=== PATIENT | female | born 1970 | race Caucasian/White ===

== ENCOUNTER 2020-07-05 15:05 | Outpatient (CLI) | payer OTHER, SELFPAY ==
--- NOTE | ~2020-07-05 | MM_ITS ---
EXAMINATION: MM screening [facility] BI w purvi HISTORY: Screening mammogram TECHNIQUE: Craniocaudal and mediolateral oblique 3-D tomosynthesis images were obtained and synthetic 2-D images were generated. CAD analysis was submitted and interpreted. COMPARISON: 05/09/2018 BREAST PARENCHYMAL COMPOSITION: The breasts are heterogeneously dense, which may obscure small masses . FINDINGS: There is no evidence of suspicious mass, calcification, or architectural distortion to sugg est malignancy in either breast. There has been no suspicious interval change. IMPRESSION: 1. No mammographic evidence of malignancy. 2. Recommend routine screening mammography in one year. BI-RADS Category 1: Negative Reviewed, dictated and finalized at location A. UCT SAFETY COMPLIANCE LEADER
== END 2020-07-05 15:06 | disposition home or self-care (01) ==
PROVIDERS: PCP Physician Assistant; Visit Provider Physician Assistant
DX: Z12.31 Encounter for screening mammogram for malignant neoplasm of breast (principal)
CPT/HCPCS: 77063; 77067

== ENCOUNTER 2022-07-16 08:47 | Outpatient (CLI) | payer OTHER, SELFPAY ==
--- NOTE | ~2022-07-16 | MM_ITS ---
EXAMINATION: MM screening [facility] BI w purvi HISTORY: Screening mammogram TECHNIQUE: Craniocaudal and mediolateral oblique 3-D tomosynthesis images were obtained and synthetic 2-D images were generated. CAD analysis was submitted and interpreted. COMPARISON: 07/05/2020, 05/09/2018 BREAST PARENCHYMAL COMPOSITION: There are scattered areas of fibroglandular density. FINDINGS: No suspicious mass, calcification, or architectural distortion are identified in either olman ast to suggest malignancy. There has been no suspicious interval change. IMPRESSION: 1. No mammographic evidence of malignancy. 2. Recommend routine screening mammography in one year. BI-RADS Category 1: Negative Reviewed, dictated and finalized at location A. HEALTH ATTENDANT
== END 2022-07-16 08:48 | disposition home or self-care (01) ==
LOC: ANHIMG 08:51
PROVIDERS: PCP Physician Assistant; Visit Provider Physician Assistant
DX: Z12.31 Encounter for screening mammogram for malignant neoplasm of breast (principal)
CPT/HCPCS: 77063; 77067

== ENCOUNTER 2023-11-21 14:20 | Outpatient (CLI) | payer BC, OTHER, SELFPAY ==
--- NOTE | ~2023-11-21 | MM_ITS ---
EXAMINATION: MM screening [facility] BI w purvi HISTORY: Screening TECHNIQUE: Craniocaudal and mediolateral oblique 3-D tomosynthesis images were obtained and synthetic 2-D images were generated. CAD analysis was submitted and interpreted. COMPARISON: Comparison to multiple prior studies sequentially, with oldest reviewed study dated 04/13. BREAST PARENCHYMAL COMPOSITION: Not dense: There are scattered areas of fibroglandular density. FINDINGS: There is no evidence of suspicious mass, calcification, or architectural distortion to sugg est malignancy in either breast. There has been no suspicious interval change. IMPRESSION: 1. No mammographic evidence of malignancy. 2. Recommend routine screening mammography in one year. BI-RADS Category 1: Negative Reviewed, dictated and finalized at location B.
== END 2023-11-21 14:21 | disposition home or self-care (01) ==
PROVIDERS: PCP Physician Assistant; Visit Provider Physician Assistant
DX: Z12.31 Encounter for screening mammogram for malignant neoplasm of breast (principal)
CPT/HCPCS: 77063; 77067

== ENCOUNTER 2025-02-08 15:34 | Outpatient (CLI) | payer BC, OTHER, SELFPAY ==
--- NOTE | ~2025-02-08 | MM_ITS ---
EXAMINATION: MM screening [facility] BI w purvi HISTORY: Screening TECHNIQUE: Craniocaudal and mediolateral oblique 3-D tomosynthesis images were obtained and synthetic 2-D images were generated. CAD analysis was submitted and interpreted. COMPARISON: Comparison to multiple prior studies sequentially, with oldest reviewed study dated 05/09/2018. BREAST PARENCHYMAL COMPOSITION: Not dense: There are scattered areas of fibroglandular density. FINDINGS: There is no evidence of suspicious mass, calcification, or architectural distortion to suggest malignancy in either breast. There has been no suspicious interval change. IMPRESSION: 1. No mammographic evidence of malignancy. 2. Recommend routine screening mammography in one year. BI-RADS Category 1: Negative Reviewed, dictated and finalized at location B.
--- OUTSIDE RECORDS SUMMARY | 2025-02-08 16:25 | XMS_ITS | Encounter Summary ---
Author Organization [facility] Address [address] [place] [address] Phone Care Team Providers Care Vice President Financial Name Role Phone Meryl Viera Primary Care Provider [phone] Alexys Cerna MD Unavailable [phone] Encounter Details Date Type Department Care Team (Latest Contact Info) Description 12/07/2024 Results Follow-Up [facility] Medicine Orthopaedic Surgery [address] [facility] Medical Office Building [address] [place] [address] Keenan Pepe MD [address] [place] [address] MRI Knee Right WO Contrast Social History Tobacco Use Types Packs/Day Years Used Date Smoking Tobacco: Never Smokeless Tobacco: Never Alcohol Use Standard Drinks/Week Comments Yes 3 (1 standard drink = 0.6 oz pur e alcohol) Socially AUDIT-C Answer Date Recorded Q1: How often do you have a drink containing alc ohol? 2-4 times a month 12/14/2024 Q2: How many drinks containi ng alcohol do you have on a typical day when you are drinking? 3 or 4 12/14/2024 Q3: How often do you have si x or more drinks on one occasion? Never 12/14/2024 PHQ-2 Answer Date Recorded PHQ-2 Total Score (If total score is 3 or more points, staff should administer the PHQ-9) 0 12/14/2024 PHQ-9 Answer Date Recorded PHQ-9 Total Score 0 11/04/2023 Personal Safety Answer Date Recorded Have you ever been in or are you currently in a harmful physical or emotional relationship or is someone making you feel afraid or unsafe? Denies 10/16/2024 Comments No Sex and Gender Information Value Date Recorded Sex Assigned at Not on file Legal Sex Female 7:43 AM SOLUTIONS ARCHITECT Gender Identity Female 07/02/2020 9:51 AM SOLUTIONS ARCHITECT Sexual Orientation Straight 07/02/2020 9: 51 AM SOLUTIONS ARCHITECT documented as of this encounter Functional Status * AUDIT-C Score Answer Date of Assessment Author 3 12/14/2024 2:26 PM CDT Vince Ypi LPN * Question Answer Date of Assessment Author Q1: How often do you have a drink containing alcohol? 2-4 times a month 12/14/2024 2:26 PM Eri Owens L PN Q2: How many drinks containing alcohol do you have on a typical day when you are drinking? 3 or 4 12/14/2024 2:26 PM CDT Eri Yip L PN Q3: How often do you have six or more drinks on one occasion? Never 12/14/2024 2:26 PM CDEri Lopez L PN documented as of this encounter Plan of Treatment Not on file documented as of this encounter Visit Diagnoses Not on filedocumented in this encounter Care Teams Vice President Financial Relationship Specialty Start Date End Date Meryl Viera PA [address] [place] [address] PCP - General 04/26/17 Alexys Cerna MD [address] [place] [address] Consulting Physician Family Medicine 02/25/19 documented as of this encounter
--- OUTSIDE RECORDS SUMMARY | 2025-02-08 16:25 | XMS_ITS | Clinical Summary ---
Author Organization [facility] Address [facility] [place] [address] Care Team Providers Care Hunter Trapper Name Role Phone Unavailable Primary Care Provider Unavailabl e Immunizations Immunization Administration Dates Next Due MODERNA COVID-19 (12+) MRNA, LNP-S, PF, 100 MCG/ 0.5 ML DOSE 06/28/2020 PFIZER COVID-19 (ORIGINAL FO RMULATION, PURPLE CAP) mRNA, LNP-S, PF, 30 MCG/0.3 ML DOSE 07/25/2020 Social History Tobacco Use Types Packs/Day Years Used Date Smoking Tobacco: Never Assessed Comments Unknown Sex and Gender Information Value Date Recorded Sex Assigned at Not on file Legal Sex Female 7:37 PM CDT Gender Identity Not on file Sexual Orientation Not on file Plan of Treatment Health Maintenance Due Date Last Done Comments Cervical Cancer Screening Pa p Smear (Age 30 to 64) Every 3 Years 1970 Colorectal Cancer Screening Colonoscopy (10 Years) 1970 Annual Physical 1973 Hepatitis C 02/03/1988 DTaP, Tdap and Td Vaccines ( 1 - Tdap) 1989 Hepatitis B Vaccines (1 of 3 - 19+ 3-dose series) 1989 Cervical Cancer Screening Pa p with HPV Testing (Age 30 to 64) Every 5 Years 02/03/2000 Cervical Cancer Screening wi th HPV 02/03/2000 Mammogram Screening 2010 Pneumococcal Vaccine: 50+ Years (1 of 1 - PCV) 02/03/2020 Zoster Vaccines (1 of 2) 02/03/2020 COVID-19 Vaccine (3 - 2024-2 6 season) 2025 07/25/2020, 06/28/2020 Meningococcal B Vaccine Aged Out No l onger eligible based on patient's age to complete this topic Meningococcal Vaccine Aged Out No lisa junior eligible based on patient's age to complete this topic RSV Immunizations Under 20 Months Aged Out No longer eligible b ased on patient's age to complete this topic
--- OUTSIDE RECORDS SUMMARY | 2025-02-08 16:25 | XMS_ITS | Encounter Summary ---
Author Organization [facility] Address [address] [place] [address] Care Team Providers Care Mail Processing Equipment Mechanic Name Role Phone Meryl Viera Primary Care Provider [phone] Alexys Cerna MD Unavailable + [phone] Encounter Details Date Type Department Care Team (Late st Contact Info) Description 12/09/2024 Results Follow-Up [facility] Family Medicine [address] [address] Meryl Viera PA [address] [address] Vitamin D 25 hydroxy, Thyroid Function [place], Lipid panel Social History Tobacco Use Types Packs/Day Years Used Date Smoking Tobacco: Never Smokeless Tobacco: Never Alcohol Use Standard Drinks/Week Comments Yes 3 (1 standard drink = 0.6 oz pur e alcohol) Socially AUDIT-C Answer Date Recorded Q1: How often do you have a drink containing alc ohol? 2-4 times a month 10/19/2024 Q2: How many drinks containi ng alcohol do you have on a typical day when you are drinking? 3 or 4 10/19/2024 Q3: How often do you have si x or more drinks on one occasion? Never 10/19/2024 PHQ-2 Answer Date Recorded PHQ-2 Total Score (If total score is 3 or more points, staff should administer the PHQ-9) 0 10/19/2024 PHQ-9 Answer Date Recorded PHQ-9 Total Score 0 11/04/2023 Personal Safety Answer Date Recorded Have you ever been in or are you currently in a harmful physical or emotional relationship or is someone making you feel afraid or unsafe? Denies 10/16/2024 Comments No Sex and Gender Information Value Date Recorded Sex Assigned at Not on file Legal Sex Female 7:43 AM APPLICATION SYSTEMS ENGINEER Gender Identity Female 07/02/2020 9:51 AM APPLICATION SYSTEMS ENGINEER Sexual Orientation Straight 07/02/2020 9: 51 AM APPLICATION SYSTEMS ENGINEER documented as of this encounter Plan of Treatment Not on file documented as of this encounter Visit Diagnoses Not on filedocumented in this encounter Care Teams Mail Processing Equipment Mechanic Relationship Specialty Start Date End Date Meryl Viera PA [address] [place], [place] [id number] PCP - General 04/26/17 Alexys Cerna MD [address] [place] [address] Consulting Physician Family Medicine 02/25/19 documented as of this encounter
--- OUTSIDE RECORDS SUMMARY | 2025-02-08 16:25 | XMS_ITS | Patient Health Record ---
Author Organization [facility] ([address]) Address [address] [place] [address] Care Team Providers Care Community Health Navigator Name Role Phone Meryl Viera Primary Care Provider Ewa Stallings Unavailable [phone] Allergies Allergen (clinical drug ingredient) Drug/Non Drug Allergy documented on EMR Reaction Allergy Type Onset Date Status fluconazole Fluconazole rash Drug Allergy Act olga lisinopril Lisinopril cough Drug Allergy Activ e Macrolides and Ketolides hives over 10 years ago and thinks taking for strep or bronchitis Drug Allergy Active Substance with sulfonamide structure and antibacterial mechanism of action (substance) Sulfa Antibiotics hives and does not remember the reaction Drug Allergy Active Reason For Referral No Information Medications Medication SIG (Take, Route, Frequency, Duration) Notes Start Date End Date Status Losartan Potassium-HCTZ 50-12.5 MG Oral; Duration: 30 Days Acti ve Levothyroxine Sodium 50 MCG Oral; Duration: 30 Days Active Social History Tobacco Use: Social History Observation Description Date Details (start date - stop date) Never Smoker NA - NA Sex Assigned At : Social History Observation Description Sex Assigned At Female Tobacco Control (Standard) Question Answer Notes Tobacco use: Nonsmoker AUDIT-C (Standard) Question Answer Notes Did you have a drink contain ing alcohol in the past year? Yes How often did you have a dri nk containing alcohol in the past year? 2 to 4 times a month (2 points) How many drinks did you have on a typical day when you were drinking in the past year? 1 or 2 drinks (0 point) How often did you have six o r more drinks on one occasion in the past year? Less than monthly (1 point) Points 3 Interpretation Positive Problems Problem Type SNOMED Code ICD Code Onset Dates Problem Status W/U Status Risk Notes Problem Chronic allergic conjunctivitis (93075079) Other chronic allergic conjunctivitis (H10.45) Active confirmed Problem Allergic rhinitis caused by pollen (disorder) (68272257) Allergic rhinitis due to pollen (J30.1) Active confirmed Problem Allergic rhinitis (03980845) Other allergic rhinitis (J30.89) Active confirmed Problem Chronic rhinitis (84457423) Chronic rhinitis (J31.0) Active confirmed Problem Uncomplicated mild persistent asthma (282565538) Mild persistent asthma, uncomplicated (J45.30) Active confirmed Problem Uncomplicated moderate persistent asthma (867945042) Moderate persistent asthma, uncomplicated (J45.40) Active confirmed Problem Uncomplicated severe persistent asthma (479307607) Severe persistent asthma, uncomplicated (J45.50) Active confirmed Problem Allergic rhinitis caused by animal hair and dander (151522551841393) Allergic rhinitis due to animal (cat) (dog) hair and dander (J30.81) Active confirmed Problem Allergy status t o other antibiotic agents (Z88.1) Active confirmed Problem Allergy status t o other drugs, medicaments and biological substances (Z88.8) Active confirmed Vital Signs Blood pressure diastolic 87 mm Hg 11/23/2024 Oximetry 97 % 11/23/2024 Height 68 in 11/23/2024 Blood pressure systolic 133 mm Hg 11/23/2024 Weight 234.6 lbs 11/23/2024 BMI 35.67 kg/m2 11/23/2024 Encounters Encounter Location Date Provider [facility] [address] 11/23/2024 Ewa Klein Generalized skin eruption due to drugs and medicaments taken internally L27.0 ; Allergy status to other antibiotic agents Z88.1 and Allergy status to other drugs, medicaments and biological substances Z88.8 Assessments Encounter Date Diagnosis (ICD Code) Assessment Notes Treatment Notes Treatment Clinical Notes Section Notes 11/23/2024 Generalized skin eruption due to drugs and medicaments taken internally (ICD-10 - L27.0) Unclear cause for rash. Skin now is clear. Most likely related to the existing rash which started before taking fluconazole. We discussed that skin testing is not available to diagnose a fluconazole allergy. If fluconazole is needed in the future consider a drug challenge. Instructed to call the office if rash recurs. 11/23/2024 Allergy status to other antibiotic agents (ICD-10 - Z88.1) Recommend continued avoidance of macrolides and sulfa drugs. We discussed that skin testing possibly could be performed to macrolide. Need to check records to see which antibiotic was taken. Skin testing is not available for Bactrim and drug challenge would need to be performed for further evaluation. 11/23/2024 Allergy status to other drugs, medicaments and biological substances (ICD-10 - Z88.8) cough with lisinopril is a side effect and need to continue avoidance. 11/23/2024 Other Plan Of Treatment No Information Insurance Providers Payer Name Payer Address Payer Phone Subscriber Number Group Number Insured Name Patient Relationship to Insured Coverage Start Date Coverage End Date [facility] [address] [place] [address] [phone] [id number] Princess Blake Self - patient is the insured 3 [employer] [address] [place] [address] [phone] [id number] Reggie Blake Spouse - patient is the spouse of the insured Medical (General) History Medical History History ICD Code Hypertension Surgical History Surgery Date(Month/Year) hysterectomy cholecystectomy
--- OUTSIDE RECORDS SUMMARY | 2025-02-08 16:25 | XMS_ITS | Clinical Summary ---
Author Organization [address] Address [address] [place] [phone] Care Team Providers Care Radiology Orderly Name Role Phone Meryl Viera Primary Care Provider Alexys Cerna MD Unavailable +- [phone] Allergies Active Allergy Reactions Criticality Noted Date Comments Fluconazole Rash Medium 10/19/2024 Lisinopril Cough Low 08/11/2021 Macrolide Antibiotics Hives Medium 08/29/2018 Sulfa (Sulfonamide Antibiotics) Hives Medium 1209/2016 Medications multivitamin tabletIndications:V itamin Deficiency Prevention Take 1 tablet by mouth Active cholecalciferol (VITAMIN D-3) 2000 unit tablet Active meloxicam (MOBIC) 15 mg tablet Take 1 tablet (15 mg total) by mouth daily Take 1 daily with food 30 tablet 5 Active losartan-hydroCHLOR Othiazide (HYZAAR) 50-12.5 mg per tabletIndications:B enign essential hypertension Take 1 tablet by mouth daily 90 tablet 3 5 Active levothyroxine (SYNTHROID) 50 mcg tabletIndications:A cquired hypothyroidism TAKE 1 TABLET(50 MCG) BY MOUTH DAILY 90 tablet 3 5 Active Active Problems Problem Noted Date Diagnosed Date Humerus head fracture, left, with routine healing, subsequent encounter 10/15/2024 Assessment & Plan (10/15/2024 9:45 AM CDT): Other specified hypothyroidism 08/11/2021 Assessment & Plan (12/14/2024 3:23 PM CDT): Chronic, well controlled Hypothyroidism well-controlled with levothyroxine. Recent labs show normal thyroid levels. She is adherent to medication regimen. - Continue levothyroxine as prescribed. Assessment & Plan (11/04/2023 9:56 AM CDT): Uncontrolled. Synthroid was recently increased to 50 mcg. Repeat labs in 6 weeks Assessment & Plan (08/11/2021 2:19 PM CDT): Repeat labs in 3 months. Hypertriglyceridemia 07/14/2021 Assessment & Plan (12/14/2024 3:23 PM CDT): Chronic, sub-optimal Goal less than 150 Limit red meats, fried and processed foods, and maintain regular exercise Assessment & Plan (11/04/2023 9:56 AM CDT): Improving. Patient will hold Tricor and repeat labs in 3 months Assessment & Plan (08/11/2021 2:25 PM CDT): Uncontrolled. Pt will increase fish oil to 1000 mg. Repeat labs in 3 months Assessment & Plan (07/14/2021 1:05 PM [employer]): Stable, continue current meds, check labs Class 2 severe obesity due t o excess calories with serious comorbidity and body mass index (BMI) of 36.0 to 36.9 in adult 02/27/2019 Assessment & Plan (12/14/2024 3:23 PM CDT): Chronic, exacerbated Weight gain associated with recent knee injury Plans to pick exercise back up following physical therapy Exercise encouraged 30 minutes 5 times a week or 150 minutes a week with no more than 2 days in between Healthy diet recommended 2 lb per week healthy weight loss goal Assessment & Plan (11/04/2023 9:56 AM CDT): Educated patient on healthy diet/exercise plan. Exercise 150min-300min per week of moderate intensity. Diet: good, healthy protein (eggs, nuts, peanut butter, chicken, fish, turkey, less pork/beef), lots of vegetables, less carbohydrates and less sugar. Assessment & Plan (07/14/2021 1:04 PM [employer]EM[employer]): Uncontrolled. Goal of BMI is less than 30 Educated patient on healthy diet/exercise plan. Exercise 150min-300min per week of moderate intensity. Diet: good, healthy protein (eggs, nuts, peanut butter, chicken, fish, turkey, less pork/beef), lots of vegetables, less carbohydrates and less sugar. Assessment & Plan (03/01/2021 7:55 AM CDT): Uncontrolled. Goal of BMI is less than 30 Educated patient on healthy diet/exercise plan. Exercise 150min-300min per week of moderate intensity. Diet: good, healthy protein (eggs, nuts, peanut butter, chicken, fish, turkey, less pork/beef), lots of vegetables, less carbohydrates and less sugar. Patient reports she has started to ride her bike more often. Assessment & Plan (07/04/2020 2:38 PM [employer] CHE[employer]EM[employer]): Educated patient on healthy diet/exercise plan. Exercise 150min-300min per week of moderate intensity. Diet: good, healthy protein (eggs, nuts, peanut butter, chicken, fish, turkey, less pork/beef), lots of vegetables, less carbohydrates and less sugar. Assessment & Plan (02/27/2019 9:24 AM CDT): Educated patient on healthy diet/exercise plan. Exercise 150min-300min per week of moderate intensity. Diet: good, healthy protein (eggs, nuts, peanut butter, chicken, fish, turkey, less pork/beef), lots of vegetables, less carbohydrates and less sugar. Annual physical exam 02/26/2019 Overview (04/02/2024): PMH: 11/04/23 Last pap: hyst Last mammogram:11/21/23 Last dexa: Last colonoscopy/cologuard: Colonoscopy 03/2024. Repeat in 5 years Last tdap:05/26/21 Last Prevnar/pneumovax: Last Shingrix: completed Last eye exam: 2023 Assessment & Plan (12/14/2024 3:23 PM CDT): Routine wellness visit with no acute concerns. Discussed general health maintenance and lifestyle modifications. - Ensure mammogram is scheduled for February 08. - Provide order for mammogram reminder. Assessment & Plan (11/04/2023 9:19 AM CDT): PMH: 11/04/23 Last pap: hyst Last mammogram:08/02 Last dexa: Last colonoscopy/cologuard: cologuard + ( has appt for colonoscopy) Last tdap:05/26/21 Last Prevnar/pneumovax: Last Shingrix: completed Last eye exam: 2023 Assessment & Plan (10/10/2022 9:40 AM CDT): PMH: 07/14/2021 Last pap: hyst Last mammogram:04/2018, 07/05/20, 08/02 Last dexa: Last colonoscopy/cologuard: cologuard 07/11/2020 Last tdap:10/20/2009, 05/26/21 Last Prevnar/pneumovax: Last Shingrix: due. Last eye exam: 02/27/2019, 06/2020 Exercise 5 days a week, 30 mins per day recommended. Eat a heart healthy diet consisting of good, healthy protein (eggs, nuts, peanut butter, chicken, fish, turkey, less pork/beef), lots of vegetables, less carbohydrates and less sugar. Annual physical recommended. Assessment & Plan (07/14/2021 1:04 PM [employer]): PMH: 07/14/2021 Last pap: hyst Last mammogram:04/2018, 07/05/20 Last dexa: Last colonoscopy/cologuard: cologuard 07/11/2020 Last tdap:10/20/2009, 05/26/21 Last Prevnar/pneumovax: Last Shingrix: due. Last eye exam: 02/27/2019, 06/2020 Assessment & Plan (07/04/2020 2:29 PM [employer] CHEESEM[employer]): PMH: 07/04/2020 Last pap: hyst Last mammogram:04/2018 (scheduled for tomorrow) Last dexa: Last colonoscopy/cologuard: ordered cologuard Last tdap:10/20/2009 (due) Last Prevnar/pneumovax: Last Shingrix: due. Last eye exam: 02/27/2019, 06/2020 Assessment & Plan (02/27/2019 8:23 AM CDT): PMH: 02/27/2019 Last pap: hyst Last mammogram:04/2018 Last dexa: Last colonoscopy/cologuard: Last tdap:10/20/2009 Last Prevnar/pneumovax: Last Shingrix: Last eye exam: 02/27/2019 Menopausal and female climacteric states 019 Assessment & Plan (07/14/2021 1:05 PM [employer]): Stable, continue current meds, due for mammogram Assessment & Plan (03/01/2021 7:55 AM CDT): Uncontrolled. Will increase estradiol to 1.5 mg daily. Follow-up in June Assessment & Plan (07/04/2020 2:39 PM [employer]): Stable, continue meds. Patient has mammogram scheduled tomorrow Assessment & Plan (06/24/2019 2:46 PM [employer]): Patient/parent was counseled on medication risk, side effects, and possible complications. Patient/parent was counseled on how to properly take the medication and to call with any adverse reactions. Patient/parent stated understanding. Pt will get her mammogram done. F/u 3 months Assessment & Plan (02/27/2019 8:19 AM CDT): On hormone creams Mixed hyperlipidemia 06/19/2017 Assessment & Plan (12/14/2024 3:23 PM CDT): Chronic, sub-optimal Goal less than 100 Limit red meats, fried and processed foods, and maintain regular exercise Repeat lab next follow up Assessment & Plan (11/04/2023 9:56 AM CDT): Improving. Patient will hold Tricor and repeat labs in 3 months. Assessment & Plan (07/14/2021 1:05 PM [employer] CHE[employer]): Stable, check labs Assessment & Plan (03/01/2021 7:55 AM CDT): Uncontrolled. Increase Tricor to 145 mg. Follow-up in June. Repeat labs in May Assessment & Plan (07/04/2020 2:39 PM [employer]): Diet controlled. Due for labs Assessment & Plan (02/27/2019 9:23 AM CDT): Diet controlled check labs in May Elevated rheumatoid factor 04/16/2017 Assessment & Plan (11/04/2023 9:56 AM CDT): Monitoring Assessment & Plan (07/14/2021 1:04 PM [employer]): Asymptomatic at this time Assessment & Plan (02/27/2019 8:18 AM CDT): See rheumatology and concern for possible lupus. Need to return when she has another episode. Benign essential hypertension 11/23/2015 Assessment & Plan (12/14/2024 3:23 PM CDT): Chronic, stable Hypertension well-managed with losartan and hydrochlorothiazide. Reviewed heart healthy diet Exercise recommended at least 5 times per week for a 1/2 hour Low-sodium diet recommended-2000 mg or less per day Monitor blood pressure regularly notify if less than 100/60 or greater than 130s over 80s Notify if pulse is less than 60 or greater than 100 Orders: losartan-hydroCHLOROthiazide (HYZAAR) 50-12.5 mg per tablet; Take 1 tablet by mouth daily Assessment & Plan (11/04/2023 9:56 AM CDT): Stable, continue Hyzaar Assessment & Plan (08/11/2021 2:24 PM CDT): Stable, doing well with current blood pressure medication. Dry cough has resolved. Follow-up in 6 months Assessment & Plan (07/14/2021 1:22 PM [employer]): Stable, patient is having side effect of cough. Stop lisinopril hydrochlorothiazide and start Hyzaar. Follow-up in 2 weeks for blood pressure check in 4 weeks for an appointment. Order labs Assessment & Plan (03/01/2021 7:55 AM CDT): Controlled, patient will continue with prescription medication. Follow-up in June Assessment & Plan (07/04/2020 2:38 PM [employer]EM[employer]): Images from the original note were not included. Stable, continue meds, ordered labs. Follow-up in 6 months. Patient informed the lab/xray results will be sent to the [facility]. They are to log in and view the results and any notes/messages/plans/orders. They should call the office with any questions. Assessment & Plan (02/27/2019 9:23 AM CDT): Stable continue meds labs due in May Vitamin D deficiency 11/23/2015 Assessment & Plan (12/14/2024 3:23 PM CDT): Chronic, stable Vitamin D deficiency managed with daily supplementation. She is compliant with supplements. - Continue daily vitamin D supplementation. Assessment & Plan (11/04/2023 9:56 AM CDT): Recommend continuing multivitamin Assessment & Plan (07/14/2021 1:05 PM [employer]): Stable, check vitamin-D Assessment & Plan (03/01/2021 7:55 AM CDT): Stable, continue vitamin-D Assessment & Plan (07/04/2020 2:39 PM [employer]OR[employer] CHEESEM[employer]): Not taking vitamins. Check labs Assessment & Plan (02/27/2019 9:23 AM CDT): Stable continue vitamin-D Resolved Problems Problem Noted Date Diagnosed Date Resolved Date MARIA DEL ROSARIO on CPAP 02/14/2023 12/14/2024 Assessment & Plan (11/04/2023 9:57 AM CDT): Continue CPAP Assessment & Plan (02/14/2023 3:54 PM CDT): Due to continued symptoms, the patient will continue with auto titrating CPAP set at 5-20 cm water pressure. Denied need for supplies. 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 She has [employer] insurance and I will order a home sleep test and she will follow-up here in 3 months. Encounters Date Type Department Care Team Description 01/19/2025 2:30 PM CDT Office Visit [facility] Medicine Orthopaedic Surgery [address] [address] 1st [address] [place] [address] Olvin Pavon MD Other closed nondisplaced fracture of proximal end of left humerus with routine healing, subsequent encounter (Primary Dx); Left shoulder pain, unspecified chronicity 12/22/2024 7:38 AM CDT - 12/22/2024 11:59 PM CDT Hospital Encounter [facility] Radiology at [facility] [address] [place] [phone] Left shoulder pain, unspecified chronicity Discharge Disposition: Discharge to home or self care 12/22/2024 7:30 AM CDT Office Visit [facility] Medicine Orthopaedic Surgery [address] [facility] 1[address] [place] [address] Olvin Pavon MD Left shoulder pain, unspecified chronicity (Primary Dx); Other closed nondisplaced fracture of proximal end of left humerus, initial encounter 12/14/2024 2:30 PM CDT Office Visit [facility] [address] [phone] Mercy Weber NP Annual physical exam (Primary Dx); Acute pain of right knee; Benign essential hypertension; Mixed hyperlipidemia; Hypertriglyceridemia ; Class 2 severe obesity due to excess calories with serious comorbidity and body mass index (BMI) of 36.0 to 36.9 in adult (HCC); Vitamin D deficiency; Other specified hypothyroidism; Encounter for screening mammogram for malignant neoplasm of breast 12/09/2024 Results Follow-Up [facility] [address] [phone] Meryl Viera PA Vitamin D 25 hydroxy, Thyroid Function [place], Lipid panel 12/08/2024 9:05 AM CDT Lab [facility] [address] [place] [phone] Annual physical exam; Vitamin D deficiency; Acquired hypothyroidism; Mixed hyperlipidemia; Hypertriglyceridemia 12/07/2024 Orders Only [facility] ([facility] - [facility] [address] [facility] [address] [address] [place] [address] Keenan Pepe MD Acute pain of right knee (Primary Dx) 12/07/2024 Telephone [facility] [address] [phone] Meryl Viera PA Additional Services Or Orders 12/07/2024 Results Follow-Up [facility] [address] [facility] [address] [place] [phone] Keenan Pepe MD MRI Knee Right WO Contrast 12/05/2024 8:32 AM CDT - 12/05/2024 11:59 PM CDT Hospital Encounter [facility] Radiology at [address] [address] Acute pain of right knee Discharge Disposition: Discharge to home or self care 12/04/2024 Orders Only [facility] Radiology at [facility] [address] [place] [phone] Rose Maza RN 12/01/2024 12:06 PM CDT - 12/01/2024 11:59 PM CDT Hospital Encounter [facility] Radiology at [facility] [address] [place] [phone] Discharge Disposition: Discharge to home or self care 12/01/2024 12:00 PM CDT Office Visit [facility] - [facility] [address] [place] [address] [address] [place] [address] Keenan Pepe MD Acute pain of right knee (Primary Dx) 11/24/2024 10:02 AM CDT - 11/24/2024 11:59 PM CDT Hospital Encounter [facility] Radiology at [facility] [address] [place] [phone] Left shoulder pain, unspecified chronicity Discharge Disposition: Discharge to home or self care 11/24/2024 10:00 AM CDT Office Visit [facility] [address] [place] [address] 1[address] [place] [phone] Olvin Pavon MD Other closed nondisplaced fracture of proximal end of left humerus, initial encounter (Primary Dx); Left shoulder pain, unspecified chronicity from Last 3 Months Immunizations Immunization Administration Dates Next Due Influenza, Quadrivalent, Spl it, Preservative Free, Intramuscular 02/23/2022,02/27/2019 Influenza, Trivalent, IM (MDV) 01/25/2021 Influenza, Unspecified 02/11/2024(Deferr ed: Patient decision),02/10/2023(Deferred: Patient Refused),02/10/2021,02/11/2020 Moderna SARS-CoV-2 Monovalen t Vaccination (12+ YRS) 06/28/2020 Tdap 05/26/2021,10/20/2009 ZOSTER Recombinant 04/04/2022,08/11/2021 Surgical History Surgery Date Site/Laterality Comments OVARIAN CYST REMOVAL VAGINAL HYSTERECTOMY One ovary remain, left CHOLECYSTECTOMY Medical History Medical History Date Comments Benign essential hypertension 11/23/2015 Elevated rheumatoid factor 04/16/2017 Health maintenance examination 02/26/2019 P MH: Last pap: hyst Last mammogram:04/2018 Last dexa: Last colonoscopy/cologuard: Last tdap:10/20/2009 Last Prevnar/pneumovax: Last Shingrix: Last eye exam: Menopausal and female climacteric states 019 Mixed hyperlipidemia 06/19/2017 Vitamin D deficiency 11/23/2015 Hypothyroidism MARIA DEL ROSARIO on CPAP 02/14/2023 Family History Medical History Relation Name Comments Heart attack Father Melchor Patten Stroke Father Melchor Patten Family history of cerebrovascular accident (CVA) - (Added by TW Conv) Depression Mother Julisa Patten Hyperlipidemia Mother Julisa Patten Hypertension Mother Julisa Patten Hypothyroidism Mother Julisa Patten Memory loss Mother Julisa Patten Relation Name Status Comments Father Melchor Patten (Age 49) Mother Julisa Patten Alive Sister Alive Social History Tobacco Use Types Packs/Day Years Used Date Smoking Tobacco: Never Smokeless Tobacco: Never Tobacco Cessation:Counseling Given: Not Answered Alcohol Use Standard Drinks/Week Comments Yes 3 [...] on file Legal Sex Female 7:43 AM [employer] Gender Identity Female 07/02/2020 9:51 AM [employer] CHEES[employer] Sexual Orientation Straight 07/02/2020 9: 51 AM [employer] Obstetrics History Para Term AB IAB SAB Ectopic Multiple Livin g Live Births 2 2 Date Outcome GA Total Labor Labor/2nd/3rd Weight Sex Type Anes PTL Terri A1 A5 Name Clin Para Para Last Filed Vital Signs Vital Sign Reading Time Taken Comments Blood Pressure 126/70 12/14/2024 2:29 PM CDT Pulse 77 12/14/2024 2:29 PM CDT Temperature 36.6 C (97.9 F) 12/14/2024 2:29 PM CDT Respiratory Rate 16 12/14/2024 2:29 PM CDT Oxygen Saturation 97% 12/14/2024 2:29 PM CDT Inhaled Oxygen Concentration - - Weight 109.5 kg (241 lb 6.4 oz) 12/14/2024 2:29 PM CDT Height 172.7 cm (5' 8) 12/14/2024 2:29 PM CDT Body Mass Index 36.7 12/14/2024 2:29 PM CDT Plan of Treatment Health Maintenance Due Date Last Done Comments Hepatitis C Screening 1970 Hepatitis B Screening 02/03/1988 Breast Cancer Screening-Mammogram 11/20/2024 11/21/2023, 07/16/2022, 07/05/2020, Additional history exists Covid-19 Vaccine ( season) 2025 04/28/2021, 07/25/2020, 06/28/2020 Influenza Vaccine (#1) 2025 , 02/10/2021, 01/25/2021, Additional history exists Depression Screening 12/14/2025 12/14/2024, 10/19/2024, 10/15/2024, Additional history exists Regular Well Visit/Exam 18-64 12/14/2025 12/14/2024, 12/14/2024, 11/04/2023, Additional history exists Colon Cancer Screening-DNA Stool 03/26/2027 03/26/2024, 03/13/2024, 09/18/2023, Additional history exists Colon Cancer Screening-Colonoscopy 03/26/2029 03/26/2024, 03/13/2024 DTaP/Tdap/Td Vaccine (3 - Td or Tdap) 05/26/2031 05/26/2021, 10/20/2009 Zoster Vaccine Completed 04/04/2022, 08/11/2021 Pneumococcal vaccine <65 Aged Out No longer eligible based on patient's age to complete this topic Procedures Procedure Name Priority Date/Time Associated Diagnosis Comments XR SHOULDER LEFT 2 OR MORE VIEWS Schedule Routine, Read Routine (OP Routine) 12/22/2024 7:42 AM CDT Left shoulder pain, unspecified chronicity LIPID PANEL Routine 12/08/2024 9:19 AM CDT Annual physical exam Mixed hyperlipidemia Hypertriglyceridem ia THYROID FUNCTION CASCADE Routine 12/08/2024 9:19 AM CDT Acquired hypothyroidism Annual physical exam VITAMIN D 25 HYDROXY Routine 12/08/2024 9:19 AM CDT Annual physical exam Vitamin D deficiency MRI KNEE RIGHT WO CONTRAST Schedule Routine, Read Routine (OP Routine) 12/05/2024 9:19 AM CDT Acute pain of right knee XR KNEE RIGHT 3 VIEWS Schedule Routine, Read Routine (OP Routine) 12/01/2024 12:10 PM CDT Acute pain of right knee XR SHOULDER LEFT 2 OR MORE VIEWS Schedule Routine, Read Routine (OP Routine) 11/24/2024 10:06 AM CDT Left shoulder pain, unspecified chronicity COLONOSCOPY Routine 03/26/2024 10:43 AM [employer] CHEESEM[employer] HM MAMMOGRAPHY Routine 11/21/2023 from Last 3 Months or Most Recently Relevant to Health Maintenance Results * XR Shoulder Left 2 or More Views (12/22/2024 7:42 AM CDT) Anatomical Region Laterality Modality Upper Extremities, Shoulder Left Comp uted Radiography 12/22/2024 9:37 AM CDT Impressions 12/22/2024 10:54 AM CDT 1. Healing/healed minimally displaced left proximal humerus fracture. Dictated by: Ellis Herrera MD The radiology attending physician has personally reviewed this study, and had reviewed and/or edited this written report and agrees with it. Electronically signed by: Cornelio Alicia MD, PHD Narrative 12/22/2024 10:54 AM CDT EXAMINATION: XR SHOULDER LEFT 2 OR MORE VIEWS HISTORY: Left shoulder pain FINDINGS: 4 radiographs of the left shoulder are submitted. Comparison is made to the shoulder radiographs dated 11/24/2024. Healing/healed, minimally displaced proximal humerus fracture involving the surgical neck and greater tuberosity in unchanged alignment. No acute new fracture. Joint spaces are preserved. Procedure Note Cornelio Alicia MD PhD - 12/22/2024 EXAMINATION: XR SHOULDER LEFT 2 OR MORE VIEWS HISTORY: Left shoulder pain FINDINGS: 4 radiographs of the left shoulder are submitted. Comparison is made to the shoulder radiographs dated 11/24/2024. Healing/healed, minimally displaced proximal humerus fracture involving the surgical neck and greater tuberosity in unchanged alignment. No acute new fracture. Joint spaces are preserved. IMPRESSION: 1. Healing/healed minimally displaced left proximal humerus fracture. Dictated by: Ellis Herrera MD The radiology attending physician has personally reviewed this study, and had reviewed and/or edited this written report and agrees with it. Electronically signed by: Cornelio Alicia MD, PHD us Olvin Pavon MD IMG XR PROCEDURES Fin al Result * Thyroid Function [place] (12/08/2024 9:19 AM CDT) TSH 2.55 0.30 - 4.20 mcIUnit/mL Comment:Testing performed by : [facility], [address] [place] [address]., [id number] Blood 12/08/2024 9:19 AM CDT 12/08/2024 10:05 AM CDT us Meryl JARRETT LAB BLOOD ORDERABLES Final Res [facility] [address] [facility] [place] [address] * Vitamin D 25 hydroxy (12/08/2024 9:19 AM CDT) Vitamin D 25-OH 74.0 30.0 - 80.0 ng/mL Blood 12/08/2024 9:19 AM CDT 12/08/2024 12:27 PM CDT us Meryl JARRETT LAB BLOOD ORDERABLES Final Res ult [facility] [id number] [facility] Department [place] [address] * (ABNORMAL) Lipid panel (12/08/2024 9:19 AM CDT) Cholesterol 181 30 - 199 mg/dL Comment: Interpretive Data Ages < or = 19 years Acceptable: <170 mg/dL Borderline high: 170-199 mg/dL High: >or= 200 mg/dL Ages > or = 20 years Desirable: <200 mg/dL Borderline high: 200-239 mg/dL High: >or= 240 mg/dL Literature References: 1. Expert Panel on Integrated Guidelines for Cardiovascular Health and Risk Reduction in Children and Adolescents. Pediatrics 2011;128:S213 2. NCEP Expert Panel. Circulation 2004;110:227 Current Interpretive Data was last revised on 2017. Testing performed by: [facility], [address] [place] [address]., [id number] Triglycerides 159(H) <=149 mg/dL [facility] Comment: Interpretive Data Ages < or = 9 years Acceptable: <75 mg/dL Borderline high: 75-99 mg/dL High: >or= 100 mg/dL Ages 10 to 20 years Acceptable: <90 mg/dL Borderline high: 90-129 mg/dL High: >or= 130 mg/dL Ages > or = 20 years Desirable: <150 mg/dL Borderline high: 150-199 mg/dL High: 200-499 mg/dL Very high: >or= 499 mg/dL Literature References: 1. Expert Panel on Integrated Guidelines for Cardiovascular Health and Risk Reduction in Children and Adolescents. Pediatrics 2011;128:S213 2. NCEP Expert Panel. Circulation 2004;110:227 Current Interpretive Data was last revised on 2017. Testing performed by: [address] [address] HDL 34(L) >=40 mg/dL [facility] Comment: Interpretive Data Ages < or = 19 years Acceptable: >45 mg/dL Borderline low: 40-45 mg/dL Low: <40 mg/dL Ages > or = 20 years Desirable: >or= 60 mg/dL Low: <40 mg/dL Literature References: 1. Expert Panel on Integrated Guidelines for Cardiovascular Health and Risk Reduction in Children and Adolescents. Pediatrics 2011;128:S213 2. NCEP Expert Panel. Circulation 2004;110:227 Current Interpretive Data was last revised on 2017. Testing performed by: [address] [address] LDL, calculated 119 <=129 mg/dL LUDWIG Comment: Interpretive Data Ages < or = 19 years Acceptable: <110 mg/dL Borderline high: 110-129 mg/dL High: >or= 130 mg/dL Ages > or = 20 years Optimal: <100 mg/dL Near optimal: 100-129 mg/dL Borderline high: 130-159 mg/dL High: >160 mg/dL Calculated using the Felipe LDL-C estimating equation. This equation was implemented on 2024. Prior to this date LDL-C was estimated using the Friedewald equation. Literature References: 1. Expert Panel on Integrated Guidelines for Cardiovascular Health and Risk Reduction in Children and Adolescents. Pediatrics 2011;128:S213 2. NCEP Expert Panel. Circulation 2004;110:227 3. Felipe Garcia al. SLAVA Cardiol. 2019September 10;5(5):540-548. doi: 10.1001/[email or web address].2020.0013 Current Interpretive Data was last revised on 2024. Testing performed by: [address] [address] Non-HDL Cholesterol 147 mg/dL LUDWIG Comment: Interpretive Data Ages < or = 19 years Acceptable: <120 mg/dL Borderline high: 120-144 mg/dL High: >145 mg/dL Ages > or = 20 years When triglycerides are >200 mg/dL, Non-HDL cholesterol is a secondary target of therapy with treatment goals that are 30 mg/dL greater than the LDL cholesterol target. Literature References: 1. Expert Panel on Integrated Guidelines for Cardiovascular Health and Risk Reduction in Children and Adolescents. Pediatrics 2011;128:S213 2. NCEP Expert Panel. Circulation 2004;110:227 Current Interpretive Data was last revised on 2017. Testing performed by: [facility], [address] [place] [address]., [address] Chol/HDL ratio 5 LUDWIG MARTINEZ Comment:Testing performed by : [address] [address] Blood 12/08/2024 9:19 AM CDT 12/08/2024 10:05 AM CDT us Meryl JARRETT LAB BLOOD ORDERABLES Final Res ult LUDWIG MARTINEZ [address] [facility] Department [place] [address] * MRI Knee Right WO Contrast (12/05/2024 9:19 AM CDT) Anatomical Region Laterality Modality Lower Extremities Right Magnetic Reson ance 12/05/2024 10:1 0 AM CDT Impressions 12/05/2024 10:10 AM CDT 1. Lateral and patellofemoral chondrosis with 4 x 6 mm full-thickness chondral defect of the lateral femoral condyle. 2. Small joint effusion and popliteal cyst with tenosynovitis 3. Normal menisci and ligaments of the right knee. Electronically signed by: Amrit De La Rosa M.D. Narrative 12/05/2024 10:10 AM CDT EXAMINATION: 1. MRI right knee without contrast HISTORY: Acute right knee pain. FINDINGS: Comparison is made with radiographs dated 12/01/2024. MR examination of the right knee was performed with an extremity coil. No intravenous or intra-articular contrast was administered for this examination. Sagittal fast spin-echo images, coronal short TR/TE and fast spin-echo images, and transverse fast spin-echo images were obtained. In the medial compartment, the meniscus is intact. There is no focal chondrosis or subchondral edema. In the lateral compartment, the meniscus is intact. There is a full-thickness chondral defect of the posterior weightbearing femoral condyle measuring 4 x 6 mm. There is no subchondral edema. In the patellofemoral compartment, there is mild chondrosis of the median patellar eminence and medial facet. Mild trochlear chondrosis. There is no subchondral edema. The cruciate and collateral ligaments are intact. The extensor mechanism is normal. There is mild prepatellar bursitis. The popliteus tendon is normal. There is a small joint effusion and synovitis. Small popliteal cyst. The bone marrow signal is normal. Procedure Note Amrit De La Rosa MD - 12/05/2024 EXAMINATION: 1. MRI right knee without contrast HISTORY: Acute right knee pain. FINDINGS: Comparison is made with radiographs dated 12/01/2024. MR examination of the right knee was performed with an extremity coil. No intravenous or intra-articular contrast was administered for this examination. Sagittal fast spin-echo images, coronal short TR/TE and fast spin-echo images, and transverse fast spin-echo images were obtained. In the medial compartment, the meniscus is intact. There is no focal chondrosis or subchondral edema. In the lateral compartment, the meniscus is intact. There is a full-thickness chondral defect of the posterior weightbearing femoral condyle measuring 4 x 6 mm. There is no subchondral edema. In the patellofemoral compartment, there is mild chondrosis of the median patellar eminence and medial facet. Mild trochlear chondrosis. There is no subchondral edema. The cruciate and collateral ligaments are intact. The extensor mechanism is normal. There is mild prepatellar bursitis. The popliteus tendon is normal. There is a small joint effusion and synovitis. Small popliteal cyst. The bone marrow signal is normal. IMPRESSION: 1. Lateral and patellofemoral chondrosis with 4 x 6 mm full-thickness chondral defect of the lateral femoral condyle. 2. Small joint effusion and popliteal cyst with tenosynovitis 3. Normal menisci and ligaments of the right knee. Electronically signed by: Amrit De La Rosa M.D. Keenan Pepe MD IM MRI PROCEDURES Final Re sult * XR Knee Right 3 View (12/01/2024 12:10 PM CDT) Anatomical Region Laterality Modality Lower Extremities, Knee Right Computed Radiography 12/01/2024 12:1 4 PM CDT Impressions 12/01/2024 12:14 PM CDT 1. Mild patellofemoral predominant right knee osteoarthritis Electronically signed by: Nikolas Thomson MD Narrative 12/01/2024 12:14 PM CDT EXAMINATION: XR KNEE RIGHT 3 VIEWS HISTORY: Knee pain. FINDINGS: No comparison. Mild patellofemoral compartment right knee osteoarthritis. No acute fracture. No dislocation. No significant knee effusion. Procedure Note Nikolas Thomson MD - 12/01/2024 EXAMINATION: XR KNEE RIGHT 3 VIEWS HISTORY: Knee pain. FINDINGS: No comparison. Mild patellofemoral compartment right knee osteoarthritis. No acute fracture. No dislocation. No significant knee effusion. IMPRESSION: 1. Mild patellofemoral predominant right knee osteoarthritis Electronically signed by: Nikolas Thomson MD us Keenan Pepe MD IMG XR PROCEDURES Final Res ult * XR Shoulder Left 2 or More Views (11/24/2024 10:06 AM CDT) Anatomical Region Laterality Modality Upper Extremities, Shoulder Left Comp uted Radiography 11/24/2024 11:1 6 AM CDT Impressions 11/24/2024 11:21 AM CDT Healing minimally displaced left proximal humeral fracture. Dictated by: Isabel Woods MD The radiology attending physician has personally reviewed this study, and had reviewed and/or edited this written report and agrees with it. Electronically signed by: Deshawn Urbina M.D. Narrative 11/24/2024 11:21 AM CDT EXAMINATION: XR SHOULDER LEFT 2 OR MORE VIEWS HISTORY: Left shoulder pain and injury after fall FINDINGS: 4 radiographs of the left shoulder are submitted. Comparison is made to an examination dated 10/23/2024. There is a healing minimally displaced proximal humeral fracture involving the surgical neck and greater tuberosity. There is no new acute fracture or dislocation. The acromioclavicular and glenohumeral joint spaces are preserved. Procedure Note Deshawn Urbina MD PhD - 11/24/2024 EXAMINATION: XR SHOULDER LEFT 2 OR MORE VIEWS HISTORY: Left shoulder pain and injury after fall FINDINGS: 4 radiographs of the left shoulder are submitted. Comparison is made to an examination dated 10/23/2024. There is a healing minimally displaced proximal humeral fracture involving the surgical neck and greater tuberosity. There is no new acute fracture or dislocation. The acromioclavicular and glenohumeral joint spaces are preserved. IMPRESSION: Healing minimally displaced left proximal humeral fracture. Dictated by: Isabel Woods MD The radiology attending physician has personally reviewed this study, and had reviewed and/or edited this written report and agrees with it. Electronically signed by: Deshawn Urbina M.D. 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[employer]) Anatomical Region Laterality Modality Other Historical Provider ENDOSCOPY PROCEDURES Keyanna l Result * HM MAMMOGRAPHY (11/21/2023) [facility] Signature Mammography Normal Historical Provider HEALTH MAINTENANCE Final Result from Last 3 Months or Most Recently Relevant to Health Maintenance Insurance [facility] Member Subscriber Plan / Payer (Ef fective 2022-Present) Name:Ehsan Garnett Relation to Subscriber:Self Name:Ehsan Garnett Payer ID:[id number] (NAIC) Type: OTHER Address: [facility] [id number] [place] [id number] [employer] CIG SOI C/O [employer] WORKERS COMPENSATION GENERIC Care Teams Radiology Orderly Relationship Specialty Start Date End Date Meryl Viera PA [address] [place] [address] PCP - General 04/26/17 Alexys Cerna MD [address] [place] [address] Consulting Physician Family Medicine 02/25/19
== END 2025-02-08 15:35 | disposition home or self-care (01) ==
LOC: ANHFOHIMG 15:35
PROVIDERS: PCP Physician Assistant; Visit Provider Physician Assistant
DX: Z12.31 Encounter for screening mammogram for malignant neoplasm of breast (principal)
CPT/HCPCS: 77063; 77067